=== PATIENT | female | born 1985 | race Caucasian/White ===

== ENCOUNTER → 2016-09-19 | Outpatient (CLI) | payer BC | LOC: MW.CHOBGYN 11:32 | PROVIDERS: ATTEND Nurse Practitioner Women's Health | DX: N94.9 Unspecified condition associated with female genital organs and menstrual cycle (principal); E79.0 Hyperuricemia without signs of inflammatory arthritis and tophaceous disease; R94.6 Abnormal results of thyroid function studies | CPT/HCPCS: 36415; 84439; 84443; 84550; 87480; 87510; 87660 ==

== ENCOUNTER 2018-12-19 06:21 | Day surgery (SDC) | payer BC ==
[2018-12-19] MEDS ORDERED: Midazolam 1 MG/ML 2 ML SDV ONE (07:02)
[2018-12-19] MEDS ORDERED: Lidocaine 2% 5 ML SDV ONE (07:02)
[2018-12-19] MEDS ORDERED: fentaNYL 100 MCG/2 ML SDV ONE (07:02)
[2018-12-19] MEDS ORDERED: Propofol 200 MG/20 ML SDV ONE ×2 (07:02→08:04)
--- NOTE | 2018-12-19 07:21 | PCM.PREANE ---
Preanesthetic Assessment - Anesthesia/Transfusion/Family Hx Anesthesia History: Prior Anesthesia Without Reaction Family History of Anesthesia Reaction: No Transfusion History: Prior Transfusion Without Reaction - Review of Systems General: No Symptoms Pulmonary: No Symptoms Cardiovascular: No Symptoms Gastrointestinal: No Symptoms Neurological: No Symptoms Other: Reports: None - Physical Assessment NPO Status Date: 12/18/18 O2 Sat by Pulse Oximetry: 98 Respiratory Rate: 14 Vital Signs: Last Vital Signs Temp 97.0 F 12/19/18 06:51 Pulse 80 12/19/18 06:51 Resp 14 12/19/18 06:51 BP 116/70 12/19/18 06:51 Pulse Ox 98 12/19/18 06:51 Height: 5 ft 3 in Weight: 79.832 kg ASA Class: 2 Mental Status: Alert & Oriented x3 Airway Class: Mallampati = 2 Dentition: Reports: Normal Dentition ROM/Head Extension: Full Lungs: Clear to Auscultation, Normal Respiratory Effort Cardiovascular: Regular Rate, Regular Rhythm - Lab Values: Laboratory Last Values Urine HCG, Qual NEGATIVE (NEGATIVE) 12/19/18 06:45 - Allergies Allergies/Adverse Reactions: Allergies Allergy/AdvReac Type Severity Reaction Status Date / Time No Known Allergies Allergy Verified 12/16/18 10:47 - Blood Blood Available: No - Anesthesia Plan Pre-Op Medication Ordered: None - Acknowledgements Anesthesia Type Planned: General Anesthesia Pt an Appropriate Candidate for the Planned Anesthesia: Yes Alternatives and Risks of Anesthesia Discussed w Pt/Guardian: Yes Pt/Guardian Understands and Agrees with Anesthesia Plan: Yes Additional Comments: anes prob list: cold induced asthma PLAN: ga/lma PreAnesthesia Questionnaire Respiratory History: Reports: Other (See Below) Other Respiratory History: never been diagnosed with Asthma but has an inhaler to use for SOB- like after shoveling snow Neurological History: Reports: Other (See Below) Other Neuro History: hx of motion sickness Endocrine/Metabolic History: Reports: Obesity/BMI 30+ Hematologic History: Reports: Other (See Below) Other Hematologic History: hx of bone marrow transplant - Past Surgical History Head Surgeries/Procedures: Reports: None HEENT Surgical History: Reports: Oral Surgery Other HEENT Surgeries/Procedures: wisdom teeth removed 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 Surgical History: Reports: ORIF Other 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 Surgeries/Procedures:: ORIF right femur- has hardware - SUBSTANCE USE Smoking Status *Q: Never Smoker Recreational Drug Use History: No - HOME MEDS Home Medications: Home Meds Levonorgestrel-Ethin Estradiol [Levonor-Eth Estrad 0.15-0.03] 1 tab PO DAILY [History] - CURRENT (IN HOUSE) MEDS Current Meds: Current Medications Discontinued Medications Fentanyl (Sublimaze) Confirm Administered Dose 100 mcg .ROUTE .STK-MED ONE Stop: 12/19/18 07:03 Lidocaine (Xylocaine-Mpf 2%) Confirm Administered Dose 5 ml .ROUTE .STK-MED ONE Stop: 12/19/18 07:03 Midazolam HCl (Versed 1 Mg/Ml) Confirm Administered Dose 2 mg .ROUTE .STK-MED ONE Stop: 12/19/18 07:03 Propofol (Diprivan 20 Ml) Confirm Administered Dose 400 mg .ROUTE .STK-MED ONE Stop: 12/19/18 07:03
[2018-12-19] MEDS ORDERED: Glycopyrrolate 0.2 MG/ML SDV ONE (08:02)
[2018-12-19] MEDS ORDERED: Lidocaine 1% 20 ML MDV ONE (08:10)
[2018-12-19] MEDS ORDERED: Lidocaine 1% with EPINEPHrine 1:100,000 20 ML MDV ONE (08:15)
--- NOTE | 2018-12-19 08:53 | PCM.OPNOTE ---
- General Post-Op/Procedure Note Date of Surgery/Procedure: 12/19/18 Operative Procedure(s): leep Post-Op Diagnosis: Same Anesthesia Technique: General LMA Primary Surgeon: Kameron Holguin EBL in mLs: 10 Complications: None Condition: Good
--- NOTE | 2018-12-19 08:54 | PCM.DCSUM1 ---
Discharge Summary - Hospital Course Diagnosis: Stroke: No - Discharge Data Discharge Date: 12/19/18 Discharge Disposition: Home, Self-Care 01 Condition: Good - Patient Summary/Data Operative Procedure(s) Performed: leep - Patient Instructions Diet: Usual Diet as Tolerated Activity: As Tolerated - Discharge Plan Home Medications: Home Meds Levonorgestrel-Ethin Estradiol [Levonor-Eth Estrad 0.15-0.03] 1 tab PO DAILY [History] - Discharge Summary/Plan Comment DC Time >30 min.: Yes - General Info Date of Service: 12/19/18 Functional Status: Reports: Pain Controlled - Review of Systems General: Reports: No Symptoms HEENT: Reports: No Symptoms Pulmonary: Reports: No Symptoms Cardiovascular: Reports: No Symptoms Gastrointestinal: Reports: No Symptoms Genitourinary: Reports: No Symptoms 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: Reports: No Symptoms Skin: Reports: No Symptoms Neurological: Reports: No Symptoms Psychiatric: Reports: No Symptoms - Patient Data Vitals - Most Recent: Last Vital Signs Temp 35.9 C 12/19/18 08:27 Pulse 79 12/19/18 08:47 Resp 15 12/19/18 08:47 BP 99/48 L 12/19/18 08:47 Pulse Ox 100 12/19/18 08:47 Weight - Most Recent: 79.832 kg Lab Results - Last 24 hrs: Laboratory Results - last 24 hr 12/19/18 Range/Units 06:45 Urine HCG, Qual NEGATIVE (NEGATIVE) Med Orders - Current: Current Medications Discontinued Medications Fentanyl (Sublimaze) Confirm Administered Dose 100 mcg .ROUTE .STK-MED ONE Stop: 12/19/18 07:03 Glycopyrrolate (Robinul) Confirm Administered Dose 0.2 mg .ROUTE .STK-MED ONE Stop: 12/19/18 08:03 Lidocaine HCl (Xylocaine-Mpf 1%) Confirm Administered Dose 10 mls @ as directed .ROUTE .STK-MED ONE Stop: 12/19/18 07:21 Lidocaine (Xylocaine-Mpf 2%) Confirm Administered Dose 5 ml .ROUTE .STK-MED ONE Stop: 12/19/18 07:03 Lidocaine HCl (Xylocaine 1%) Confirm Administered Dose 20 ml .ROUTE .STK-MED ONE Stop: 12/19/18 08:11 Lidocaine/Epinephrine (Xylocaine 1% With Epinephrine 1:100,000) Confirm Administered Dose 20 ml .ROUTE .STK-MED ONE Stop: 12/19/18 08:16 Midazolam HCl (Versed 1 Mg/Ml) Confirm Administered Dose 2 mg .ROUTE .STK-MED ONE Stop: 12/19/18 07:03 Propofol (Diprivan 20 Ml) Confirm Administered Dose 400 mg .ROUTE .STK-MED ONE Stop: 12/19/18 07:03 Propofol (Diprivan 20 Ml) Confirm Administered Dose 200 mg .ROUTE .STK-MED ONE Stop: 12/19/18 08:05 - Exam General: Reports: Alert, Oriented HEENT: Reports: Pupils Equal, Pupils Reactive, EOMI, Mucous Membr. Moist/[place] Neck: Reports: Supple Lungs: Reports: Clear to Auscultation, Normal Respiratory Effort Cardiovascular: Reports: Regular Rate, Regular Rhythm GI/Abdominal Exam: Normal Bowel Sounds, Soft, Non-Tender, No Organomegaly, No Distention, No Abnormal Bruit, No Mass, Pelvis Stable (Female) Exam: Normal External Exam, Normal Speculum Exam, Normal Bimanual Exam Rectal (Female) Exam: Normal Exam, Normal Rectal Tone Back Exam: Reports: Normal Inspection, Full Range of Motion Extremities: Normal Inspection, Normal Range of Motion, Non-Tender, No Pedal Edema, Normal Capillary Refill Skin: Reports: Warm, Dry, Intact Wound/Incisions: Reports: Healing Well Neurological: Reports: No New Focal Deficit Psy/Mental Status: Reports: Alert, Normal Affect, Normal Mood
--- NOTE | 2018-12-19 09:15 | PCM.POSTAN ---
POST ANESTHESIA ASSESSMENT - MENTAL STATUS Mental Status: Alert, Oriented - RESPIRATORY Respiratory Status: Respiratory Rate WNL, Airway Patent, O2 Saturation Stable - CARDIOVASCULAR CV Status: Pulse Rate WNL, Blood Pressure Stable - GASTROINTESTINAL GI Status: No Symptoms - POST OP HYDRATION Hydration Status: Adequate & Stable
--- NOTE | 2018-12-19 09:15 | PCM48HPAN ---
Post Anesthesia Note - EVALUATION WITHIN 48HRS OF ANESTHETIC Vital Signs in Normal Range: Yes Patient Participated in Evaluation: Yes Respiratory Function Stable: Yes Airway Patent: Yes Cardiovascular Function Stable: Yes Hydration Status Stable: Yes Pain Control Satisfactory: Yes Nausea and Vomiting Control Satisfactory: Yes Mental Status Recovered: Yes Resp Rate: 20
--- NOTE | 2018-12-19 12:25 | OR ---
SURGEON: Kameron Holguin MD DATE OF PROCEDURE: 12/19/2018 PREOPERATIVE DIAGNOSIS: Abnormal Pap smear. POSTOPERATIVE DIAGNOSIS: Abnormal Pap smear. OPERATION PERFORMED: LEEP conization of the cervix. PRIMARY SURGEON: Kameron Holguin MD. IT SPECIALIST: OR Talia. ANESTHESIA: LMA, Mr. Víctor Oneil. ESTIMATED BLOOD LOSS: Less than 10 mL. COMPLICATIONS: None. INDICATION FOR SURGERY: This patient had a persistent abnormal Pap smear with high grade virus. She is admitted for a LEEP excision, diagnostic and therapeutic. PROCEDURE IN DETAIL: The patient was brought to the OR, properly identified, and after adequate level of anesthesia, patient was placed in lithotomy position, prepped and draped in sterile fashion as usual. Straight catheter was used to empty the bladder, and weighted speculum was placed in vagina, and then, an Allis clamp was applied to the cervix in 3 and 9 o'clock. Cervix was injected with copious amount of xylocaine with 1% of epi. Once that is done, then a loop excision was done without any problem and sent for pathology. The base of the cervix was cauterized with a ball electrocautery, and there was a very minimal amount of bleeding, and once it was done, the procedure was ended. Instrument and sponge count was correct. The patient tolerated the procedure well, went to recovery room in stable general condition. BRITTANI / KIMBERLY /[id number]
== END 2018-12-19 10:18 | disposition home or self-care (01) ==
LOC: MW.SDS 06:21
PROVIDERS: ATTEND Obstetrics & Gynecology
DX: N87.0 Mild cervical dysplasia (principal); N72 Inflammatory disease of cervix uteri; R87.810 Cervical high risk human papillomavirus (HPV) DNA test positive; R87.620 Atypical squamous cells of undetermined significance on cytologic smear of vagina (ASC-US); J45.990 Exercise induced bronchospasm; E66.9 Obesity, unspecified; Z68.32 Body mass index [BMI] 32.0-32.9, adult; Z79.3 Long term (current) use of hormonal contraceptives; Z79.51 Long term (current) use of inhaled steroids
CPT/HCPCS: 57522; 81025; J2001; J2250; J2704; J3010; J3490; 00944; 88307

== ENCOUNTER 2020-11-16 21:34 | Inpatient (IN) | payer BC, OTHER ==
[2020-11-16] MEDS ORDERED: Lidocaine 1% 50 ML MDV INJECT PRN (22:19)
[2020-11-16] MEDS ORDERED: Tranexamic Acid 1,000 MG in Sodium Chloride 0.9% 100 ML IV PRN (22:19)
[2020-11-16] MEDS ORDERED: Butorphanol 1 MG/ML SDV IVPUSH PRN (22:19)
[2020-11-16] MEDS ORDERED: Sodium Chloride 0.9% 10 ML Syringe FLUSH PRN (22:19)
[2020-11-16] MEDS ORDERED: Carboprost Tromethamine 250 MCG/1 ML Amp IM PRN (22:19)
[2020-11-16] MEDS ORDERED: Water For Irrigation,Sterile 1,000 ML Container IRR PRN (22:19)
[2020-11-16] MEDS ORDERED: Nalbuphine 10 MG/1 ML Vial IVPUSH PRN (22:19)
[2020-11-16] MEDS ORDERED: Misoprostol 200 MCG Tab PO PRN (22:19)
[2020-11-16] MEDS ORDERED: Terbutaline 1 MG/ML SDV SUBCUT PRN (22:19)
[2020-11-16] MEDS ORDERED: Sodium Chloride 0.9% 2.5 ML Syringe FLUSH PRN (22:19)
[2020-11-16] MEDS ORDERED: Sodium Chloride 0.9% 10 ML SDV IV PRN (22:19)
[2020-11-16] MEDS ORDERED: Methylergonovine 0.2 MG/1 ML Amp IM PRN (22:19)
[2020-11-16] MEDS ORDERED: Ondansetron 4 MG/2 ML SDV IVPUSH PRN (22:19)
[2020-11-16] MEDS ORDERED: Oxytocin/0.9 % Sodium Chloride 30 UNIT/500 ML BAG IV SCH (22:30)
[2020-11-16] MEDS: Lactated Ringers 1,000 ML IV SCH (23:00)
[2020-11-16] MEDS: Oxytocin/0.9 % Sodium Chloride 30 UNIT/500 ML BAG IV SCH ×2 (23:15→23:40)
[2020-11-17] MEDS: Oxytocin/0.9 % Sodium Chloride 30 UNIT/500 ML BAG IV SCH ×8 (00:05→06:17)
[2020-11-17] MEDS: Lactated Ringers 1,000 ML IV SCH ×3 (01:30→07:37)
[2020-11-17] MEDS ORDERED: fentaNYL 100 MCG/2 ML SDV ONE (03:14)
[2020-11-17] MEDS ORDERED: Ropivacaine HCl/PF 200 ML ONE (03:14)
--- NOTE | 2020-11-17 03:34 | PCM.PREANE ---
Preanesthetic Assessment - Anesthesia/Transfusion/Family Hx Anesthesia History: Prior Anesthesia Without Reaction Family History of Anesthesia Reaction: No Transfusion History: Prior Transfusion Without Reaction - Physical Assessment NPO Status Date: 11/17/20 NPO Status Time: 01:00 Height: 1.6 m Weight: 111.13 kg ASA Class: 2E - Lab Values: Laboratory Last Values WBC 9.11 K/uL (4.0-11.0) 11/16/20 22:39 RBC 4.04 M/uL (4.30-5.90) L 11/16/20 22:39 Hgb 11.7 g/dL (12.0-16.0) L 11/16/20 22:39 Hct 35.7 % (36.0-46.0) L 11/16/20 22:39 MCV 88.4 fL (80.0-98.0) 11/16/20 22:39 MCH 29.0 pg (27.0-32.0) 11/16/20 22:39 MCHC 32.8 g/dL (31.0-37.0) 11/16/20 22:39 RDW Std Deviation 47.5 fl (28.0-62.0) 11/16/20 22:39 RDW Coeff of Mehul 15 % (11.0-15.0) 11/16/20 22:39 Plt Count 187 K/uL (150-400) 11/16/20 22:39 MPV 13.00 fL (7.40-12.00) H 11/16/20 22:39 Nucleated RBC % 0.0 /100WBC 11/16/20 22:39 Nucleated RBCs # 0 K/uL 11/16/20 22:39 Blood Type A POSITIVE 11/16/20 22:14 Antibody Screen NEGATIVE 11/16/20 22:14 - Allergies Allergies/Adverse Reactions: Allergies Allergy/AdvReac Type Severity Reaction Status Date / Time No Known Allergies Allergy Verified 11/15/20 15:59 - Acknowledgements Anesthesia Type Planned: Epidural Pt an Appropriate Candidate for the Planned Anesthesia: Yes Alternatives and Risks of Anesthesia Discussed w Pt/Guardian: Yes Pt/Guardian Understands and Agrees with Anesthesia Plan: Yes PreAnesthesia Questionnaire - Past Health History Medical/Surgical History: Denies Medical/Surgical History HEENT History: Reports: None Respiratory History: Reports: Other (See Below) Other Respiratory History: never been diagnosed with Asthma but has an inhaler to use for SOB- like after shoveling snow 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: 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 History: Reports: None Neurological History: Reports: Other (See Below) Other Neuro History: hx of motion sickness Endocrine/Metabolic History: Reports: Obesity/BMI 30+ Hematologic History: Reports: Other (See Below) Other Hematologic History: hx of bone marrow transplant - Past Surgical History Head Surgeries/Procedures: Reports: None HEENT Surgical History: Reports: Oral Surgery Other HEENT Surgeries/Procedures: wisdom teeth removed 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 Surgical History: Reports: ORIF Other 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 Surgeries/Procedures:: ORIF right femur- has hardware - HOME MEDS Home Medications: Home Meds Levonorgestrel/Ethin.estradiol [Levonor-Eth Estrad 0.15-0.03] 1 tab PO DAILY 12/16/18 [History] - CURRENT (IN HOUSE) MEDS Current Meds: Current Medications Butorphanol Tartrate (Butorphanol 1 Mg/Ml Sdv) 1 mg IVPUSH Q1H PRN PRN Reason: Pain (severe 7-10) Last Admin: 11/17/20 02:04 Dose: 1 mg Documented by: Carboprost Tromethamine (Carboprost Tromethamine 250 Mcg/1 Ml Amp) 250 mcg IM ASDIRECTED PRN PRN Reason: Post Hemorrhage Oxytocin/Sodium Chloride (Oxytocin 30 Unit/500 Ml-Ns) 30 unit in 500 mls @ 999 mls/hr IV TITRATE JUDD Tranexamic Acid 1,000 mg/ (Sodium Chloride) 110 mls @ 660 mls/hr IV ONETIME PRN PRN Reason: Bleeding Oxytocin/Sodium Chloride (Oxytocin 30 Unit/500 Ml-Ns) 30 unit in 500 mls @ 2 mls/hr IV TITRATE JUDD; Protocol Last Admin: 11/17/20 02:00 Dose: 16 munits/min, 16 mls/hr Documented by: Lactated Ringer's (Ringers, Lactated) 1,000 mls @ 150 mls/hr IV ASDIRECTED JUDD Last Admin: 11/16/20 23:00 Dose: 150 mls/hr Documented by: Lidocaine HCl (Lidocaine 1% 50 Ml Mdv) 50 ml INJECT ONETIME PRN PRN Reason: Laceration repair Methylergonovine Maleate (Methylergonovine 0.2 Mg/1 Ml Amp) 0.2 mg IM ASDIRECTED PRN PRN Reason: Post Hemorrhage Misoprostol (Misoprostol 200 Mcg Tab) 200 mcg PO ONETIME PRN PRN Reason: Post Hemorrhage Nalbuphine HCl (Nalbuphine 10 Mg/1 Ml Vial) 10 mg IVPUSH Q1H PRN PRN Reason: Pain (severe 7-10) Ondansetron HCl (Ondansetron 4 Mg/2 Ml Sdv) 4 mg IVPUSH Q4H PRN PRN Reason: Nausea/Vomiting Sodium Chloride (Sodium Chloride 0.9% 10 Ml Syringe) 10 ml FLUSH ASDIRECTED PRN PRN Reason: Keep Vein Open Sodium Chloride (Sodium Chloride 0.9% 2.5 Ml Syringe) 2.5 ml FLUSH ASDIRECTED PRN PRN Reason: Keep Vein Open Sodium Chloride (Sodium Chloride 0.9% 10 Ml Sdv) 10 ml IV ASDIRECTED PRN PRN Reason: IV Use Sterile Water (Water For Irrigation,Sterile 1,000 Ml Container) 1,000 ml IRR ASDIRECTED PRN PRN Reason: delivery Terbutaline Sulfate (Terbutaline 1 Mg/Ml Sdv) 0.25 mg SUBCUT ASDIRECTED PRN PRN Reason: Tacysystole Discontinued Medications Fentanyl (Fentanyl 100 Mcg/2 Ml Sdv) Confirm Administered Dose 200 mcg .ROUTE .STK-MED ONE Stop: 11/17/20 03:15 Ropivacaine (Naropin 0.2%) Confirm Administered Dose 200 mls @ as directed .ROUTE .STK-MED ONE Stop: 11/17/20 03:15
--- NOTE | 2020-11-17 03:38 | PCM.PRNOTE ---
- Free Text/Narrative Note: Anes Note Patietn requests epidural fro L&D. Sitting position. Sterile technique, level L3-L4 midline approach. Chloraprep scrub to lumbar area. Sterile fenestrated drape applied. Epidural space easily achieved sigle attempt using SAMSON technique. SAMSON at 5 cm. Cath threaded 6 cm wiht ease. Cath secured at skin using sterile clear adhesive dressing. Test 0316 3 cc 1.5% lido with epi negative. 0320 Load 10 cc 0.2% ropivicaine with 1 mcg cc fentanyl. 0324 Pumps started with 190 cc same solution. Rate is 8 cc hr with 6 cc q 20 min prn bolus. Ketan well. 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
[2020-11-17] MEDS ORDERED: Phenylephrine/Normal Saline 100 MCG/ML 10 ML Syringe IVPUSH PRN (03:44)
[2020-11-17] MEDS ORDERED: ePHEDrine 50 MG/ML SDV IVPUSH PRN (03:44)
[2020-11-17] MEDS ORDERED: Docusate Sodium 100 MG Cap PO PRN (11:53)
[2020-11-17] MEDS ORDERED: Acetaminophen 500 MG Tab PO PRN ×2 (11:53)
[2020-11-17] MEDS ORDERED: Lanolin 100% Cream 7 GM Tube TOP PRN (11:53)
[2020-11-17] MEDS ORDERED: Bisacodyl 10 MG Supp RECTAL PRN (11:53)
[2020-11-17] MEDS ORDERED: Benzocaine/Menthol 20%-0.5% Spray 78 GM Cannister TOP PRN (11:53)
[2020-11-17] MEDS ORDERED: oxyCODONE 5 MG Tab PO PRN (11:53)
[2020-11-17] MEDS ORDERED: Witch Hazel Medicated Pads 40/Jar TOP PRN (11:53)
[2020-11-17] MEDS ORDERED: Ibuprofen 400 MG Tab PO PRN (11:53)
--- NOTE | 2020-11-17 12:03 | PCM.DEL ---
L & D Note - General Info Date of Service: 11/17/20 Mother's Due Date: 11/23/20 - Delivery Note Labor: Induced by Oxytocin Cervical Ripening Method: Oxytocin Delivery Outcome: Livebirth Infant Delivery Method: Spontaneous Vaginal Delivery-Single Presentation: Left Occiput Anterior (MIKE) Nuchal Cord: Present (x1, delivered through) Anesthesia Type: Epidural Amniotic Fluid Description: Clear Episiotomy Type: None Laceration: None Placenta: Intact, Spontaneous Cord: 3 Vessels Estimated Blood Loss: 150 Resuscitation Needed: No : Bulb Syringe, Stimulated Score 1 min: 8 Score 5 min: 9 Delivery Comments (Free Text/Narrative):: Dictation #[id number] - General Info Date of Service: 11/17/20 - Patient Data Weight - Most Recent: 245 lb Lab Results Last 24 Hours: Laboratory Results - last 24 hr 11/16/20 11/16/20 Range/Units 22:14 22:39 WBC 9.11 (4.0-11.0) K/uL RBC 4.04 L (4.30-5.90) M/uL Hgb 11.7 L (12.0-16.0) g/dL Hct 35.7 L (36.0-46.0) % MCV 88.4 (80.0-98.0) fL MCH 29.0 (27.0-32.0) pg MCHC 32.8 (31.0-37.0) g/dL RDW Std Deviation 47.5 (28.0-62.0) fl RDW Coeff of Mehul 15 (11.0-15.0) % Plt Count 187 (150-400) K/uL MPV 13.00 H (7.40-12.00) fL Nucleated RBC % 0.0 /100WBC Nucleated RBCs # 0 K/uL Blood Type A POSITIVE Antibody Screen NEGATIVE Med Orders - Current: Current Medications Butorphanol Tartrate (Butorphanol 1 Mg/Ml Sdv) 1 mg IVPUSH Q1H PRN PRN Reason: Pain (severe 7-10) Last Admin: 11/17/20 02:04 Dose: 1 mg Documented by: Carboprost Tromethamine (Carboprost Tromethamine 250 Mcg/1 Ml Amp) 250 mcg IM ASDIRECTED PRN PRN Reason: Post Hemorrhage Ephedrine Sulfate (Ephedrine 50 Mg/Ml Sdv) 10 mg IVPUSH Q5M PRN PRN Reason: Hypotension Oxytocin/Sodium Chloride (Oxytocin 30 Unit/500 Ml-Ns) 30 unit in 500 mls @ 999 mls/hr IV TITRATE JUDD Tranexamic Acid 1,000 mg/ (Sodium Chloride) 110 mls @ 660 mls/hr IV ONETIME PRN PRN Reason: Bleeding Oxytocin/Sodium Chloride (Oxytocin 30 Unit/500 Ml-Ns) 30 unit in 500 mls @ 2 mls/hr IV TITRATE [facility]; Protocol Last Admin: 11/17/20 06:17 Dose: 10 munits/min, 10 mls/hr Documented by: Lactated Ringer's (Ringers, Lactated) 1,000 mls @ 150 mls/hr IV ASDIRECTED JUDD Last Admin: 11/17/20 07:37 Dose: 150 mls/hr Documented by: Lidocaine HCl (Lidocaine 1% 50 Ml Mdv) 50 ml INJECT ONETIME PRN PRN Reason: Laceration repair Methylergonovine Maleate (Methylergonovine 0.2 Mg/1 Ml Amp) 0.2 mg IM ASDIRECTED PRN PRN Reason: Post Hemorrhage Misoprostol (Misoprostol 200 Mcg Tab) 200 mcg PO ONETIME PRN PRN Reason: Post Hemorrhage Nalbuphine HCl (Nalbuphine 10 Mg/1 Ml Vial) 10 mg IVPUSH Q1H PRN PRN Reason: Pain (severe 7-10) Ondansetron HCl (Ondansetron 4 Mg/2 Ml Sdv) 4 mg IVPUSH Q4H PRN PRN Reason: Nausea/Vomiting Phenylephrine HCl (Phenylephrine/Normal Saline 100 Mcg/Ml 10 Ml Syringe) 0.1 mg IVPUSH Q5M PRN PRN Reason: Hypotension Sodium Chloride (Sodium Chloride 0.9% 10 Ml Syringe) 10 ml FLUSH ASDIRECTED PRN PRN Reason: Keep Vein Open Sodium Chloride (Sodium Chloride 0.9% 2.5 Ml Syringe) 2.5 ml FLUSH ASDIRECTED PRN PRN Reason: Keep Vein Open Sodium Chloride (Sodium Chloride 0.9% 10 Ml Sdv) 10 ml IV ASDIRECTED PRN PRN Reason: IV Use Sterile Water (Water For Irrigation,Sterile 1,000 Ml Container) 1,000 ml IRR ASDIRECTED PRN PRN Reason: delivery Terbutaline Sulfate (Terbutaline 1 Mg/Ml Sdv) 0.25 mg SUBCUT ASDIRECTED PRN PRN Reason: Tacysystole Discontinued Medications Fentanyl (Fentanyl 100 Mcg/2 Ml Sdv) Confirm Administered Dose 200 mcg .ROUTE .STK-MED ONE Stop: 11/17/20 03:15 Ropivacaine (Naropin 0.2%) Confirm Administered Dose 200 mls @ as directed .BLANCHE SEARSE .STK-MED ONE Stop: 11/17/20 03:15 - Problem List Review Problem List Initiated/Reviewed/Updated: Yes - My Orders Last 24 Hours: My Active Orders 11/17/20 11:53 Patient Status [ADT] Routine May Shower [RC] ASDIRECTED Up ad Destiny [RC] ASDIRECTED Vital Signs [RC] PER UNIT ROUTINE Acetaminophen [Tylenol Extra Strength] 1,000 mg PO Q4H PRN Acetaminophen [Tylenol Extra Strength] 500 mg PO Q4H PRN Benzocaine/Menthol [Dermoplast Pain Relief 20%-0.5% [place]] 78 gm TOP ASDIRECTED PRN Docusate Sodium [Colace] 100 mg PO Q12H PRN Ibuprofen [Motrin] 400 mg PO Q4H PRN Ibuprofen [Motrin] 800 mg PO Q6H PRN Lanolin [Lansinoh HPA] See Dose Instructions TOP ASDIRECTED PRN bisacodyL [Dulcolax] 10 mg RECTAL ONETIME PRN oxyCODONE 5 mg PO Q2H PRN witch Maria [Tucks] 1 pad TOP ASDIRECTED PRN Assess Lochia [WOMSER] Per Unit Routine Assess Uterine Involution [WOMSER] Per Unit Routine Peripheral IV Discontinue [OM.PC] Routine 11/18/20 05:11 HEMOGLOBIN/HEMATOCRIT,HH [HEME] Timed - Assessment Assessment:: 34 year old G3 now P2012 s/p spontaneous vaginal delivery - Plan Plan:: Routine cares * Rh positive, rubella immune, GBS negative * PO pain medication ordered PRN * Regular diet as tolerated * Encourage ambulation and fluid intake when able Dispo: stable. Admit to floor with anticipation of routine course.
--- NOTE | 2020-11-17 14:00 | OR ---
SURGEON: NIDIA PEACE MD DATE OF PROCEDURE: 11/17/2020 PREOPERATIVE DIAGNOSES: 1. Term intrauterine at 39 weeks and 1 day gestation. 2. Maternal obesity. 3. History of preeclampsia in previous . POSTOPERATIVE DIAGNOSES: 1. Term intrauterine at 39 weeks and 1 day gestation. 2. Maternal obesity. 3. History of preeclampsia in previous . PROCEDURE PERFORMED: Spontaneous vaginal delivery. PRIMARY SURGEON: Nidia Peace MD INDICATIONS: The patient is a 34-year-old 3, para 1 at 39 weeks gestation who presented to Labor and Delivery on the evening of 11/16/2020 for induction of labor. She received IV Pitocin for induction. She received an epidural through the early hours of 11/17/2020 and labor progressed spontaneously. At approximately 11:30, I was notified. The patient was completely dilated and feeling pressured and wanted to start pushing. DESCRIPTION OF PROCEDURE: Upon arrival to patient's room, the patient pushed with contractions for approximately 10 minutes with good descent. head delivered in occiput anterior position, restituted LOT. Tight nuchal cord was noted and delivered through. The anterior shoulder delivered easily. Posterior shoulder and remaining body were then delivered without difficulty. The baby was then placed on maternal abdomen and evaluated by nursing staff. After the cord stopped pulsating, it was clamped and cut, and arterial venous and cord blood gases were then obtained. The placenta was then expressed intact. Three-vessel cord was noted. The vagina and perineum were then examined and no lacerations were noted. Fundal massage was performed, and the patient's bleeding was light. Hemostasis was confirmed. She tolerated the procedure well and was given care instructions. SACHIN / KIMBERLY /[id number]
[2020-11-17] MEDS: Ibuprofen 800 MG Tab PO PRN (20:03)
[2020-11-18] MEDS: Ibuprofen 800 MG Tab PO PRN (02:21)
--- NOTE | 2020-11-18 08:10 | PCM.PNPP ---
- General Info Date of Service: 11/18/20 Subjective Update: Resting comfortably in bed, nursing baby during rounds. Pain well controlled. Ambulating and voiding without difficulty. Lochia decreasing. Tolerating regular diet. going well. - General Info Date of Service: 11/18/20 - Patient Data Vital Signs - Most Recent: Last Vital Signs Temp 96.9 F 11/18/20 05:00 Pulse 59 L 11/18/20 05:00 Resp 16 11/18/20 05:00 BP 124/75 11/18/20 05:00 Pulse Ox 98 11/18/20 05:00 Weight - Most Recent: 245 lb Lab Results - Last 24 Hours: Laboratory Results - last 24 hr 11/18/20 Range/Units 05:25 Hgb 10.3 L (12.0-16.0) g/dL Hct 32.0 L (36.0-46.0) % Med Orders - Current: Current Medications Acetaminophen (Acetaminophen 500 Mg Tab) 500 mg PO Q4H PRN PRN Reason: Pain (mild 1-3) Acetaminophen (Acetaminophen 500 Mg Tab) 1,000 mg PO Q4H PRN PRN Reason: Pain (mild 1-3) Last Admin: 11/17/20 15:18 Dose: 1,000 mg Documented by: Benzocaine/Menthol (Benzocaine/Menthol 20%-0.5% [place] 78 Gm Cannister) 78 gm TOP ASDIRECTED PRN PRN Reason: Perineal Comfort Measure Last Admin: 11/17/20 15:17 Dose: 1 canister Documented by: Bisacodyl (Bisacodyl 10 Mg Supp) 10 mg RECTAL ONETIME PRN PRN Reason: Constipation Butorphanol Tartrate (Butorphanol 1 Mg/Ml Sdv) 1 mg IVPUSH Q1H PRN PRN Reason: Pain (severe 7-10) Last Admin: 11/17/20 02:04 Dose: 1 mg Documented by: Carboprost Tromethamine (Carboprost Tromethamine 250 Mcg/1 Ml Amp) 250 mcg IM ASDIRECTED PRN PRN Reason: Post Hemorrhage Docusate Sodium (Docusate Sodium 100 Mg Cap) 100 mg PO Q12H PRN PRN Reason: Constipation Last Admin: 11/17/20 20:03 Dose: 100 mg Documented by: Emollient Ointment (Lanolin 100% Cream 7 Gm Tube) 0 gm TOP ASDIRECTED PRN PRN Reason: Sore Nipples Last Admin: 11/17/20 15:17 Dose: 1 tube Documented by: Ephedrine Sulfate (Ephedrine 50 Mg/Ml Sdv) 10 mg IVPUSH Q5M PRN PRN Reason: Hypotension Oxytocin/Sodium Chloride (Oxytocin 30 Unit/500 Ml-Ns) 30 unit in 500 mls @ 999 mls/hr IV TITRATE JUDD Tranexamic Acid 1,000 mg/ (Sodium Chloride) 110 mls @ 660 mls/hr IV ONETIME PRN PRN Reason: Bleeding Oxytocin/Sodium Chloride (Oxytocin 30 Unit/500 Ml-Ns) 30 unit in 500 mls @ 2 mls/hr IV TITRATE JUDD; Protocol Last Admin: 11/17/20 06:17 Dose: 10 munits/min, 10 mls/hr Documented by: Lactated Ringer's (Ringers, Lactated) 1,000 mls @ 150 mls/hr IV ASDIRECTED JUDD Last Admin: 11/17/20 07:37 Dose: 150 mls/hr Documented by: Ibuprofen (Ibuprofen 400 Mg Tab) 400 mg PO Q4H PRN PRN Reason: Pain (mild 1-3) Ibuprofen (Ibuprofen 800 Mg Tab) 800 mg PO Q6H PRN PRN Reason: Pain (mild 1-3) Last Admin: 11/18/20 02:21 Dose: 800 mg Documented by: Lidocaine HCl (Lidocaine 1% 50 Ml Mdv) 50 ml INJECT ONETIME PRN PRN Reason: Laceration repair Methylergonovine Maleate (Methylergonovine 0.2 Mg/1 Ml Amp) 0.2 mg IM ASDIRECTED PRN PRN Reason: Post Hemorrhage Misoprostol (Misoprostol 200 Mcg Tab) 200 mcg PO ONETIME PRN PRN Reason: Post Hemorrhage Nalbuphine HCl (Nalbuphine 10 Mg/1 Ml Vial) 10 mg IVPUSH Q1H PRN PRN Reason: Pain (severe 7-10) Ondansetron HCl (Ondansetron 4 Mg/2 Ml Sdv) 4 mg IVPUSH Q4H PRN PRN Reason: Nausea/Vomiting Oxycodone HCl (Oxycodone 5 Mg Tab) 5 mg PO Q2H PRN PRN Reason: Pain (severe 7-10) Phenylephrine HCl (Phenylephrine/Normal Saline 100 Mcg/Ml 10 Ml Syringe) 0.1 mg IVPUSH Q5M PRN PRN Reason: Hypotension Sodium Chloride (Sodium Chloride 0.9% 10 Ml Syringe) 10 ml FLUSH ASDIRECTED PRN PRN Reason: Keep Vein Open Sodium Chloride (Sodium Chloride 0.9% 2.5 Ml Syringe) 2.5 ml FLUSH ASDIRECTED PRN PRN Reason: Keep Vein Open Sodium Chloride (Sodium Chloride 0.9% 10 Ml Sdv) 10 ml IV ASDIRECTED PRN PRN Reason: IV Use Sterile Water (Water For Irrigation,Sterile 1,000 Ml Container) 1,000 ml IRR ASDIRECTED PRN PRN Reason: delivery Terbutaline Sulfate (Terbutaline 1 Mg/Ml Sdv) 0.25 mg SUBCUT ASDIRECTED PRN PRN Reason: Tacysystole Witch Maria (Witch Maria Medicated Pads 40/Jar) 1 pad TOP ASDIRECTED PRN PRN Reason: comfort care Last Admin: 11/17/20 15:17 Dose: 1 container Documented by: Discontinued Medications Fentanyl (Fentanyl 100 Mcg/2 Ml Sdv) Confirm Administered Dose 200 mcg .ROUTE .STK-MED ONE Stop: 11/17/20 03:15 Ropivacaine (Naropin 0.2%) Confirm Administered Dose 200 mls @ as directed .ROUTE .STK-MED ONE Stop: 11/17/20 03:15 - Infant Interaction Disposition, : [place] in Room with Family Infant Interaction: Holding Infant Infant Feeding: Breastfed ; Nursed Well Support Person: - Recovery Exam Fundal Tone: Firm Fundal Level: 1 Fingerbreadths Below Umbilicus Fundal Placement: Midline Lochia Amount: Scant Lochia Color: Rubra/Red Perineum Description: Edematous Episiotomy/Laceration: None Bladder Status: Voiding Urinary Elimination: Voided - Exam General: Alert Lungs: Clear to Auscultation Cardiovascular: Regular Rate GI/Abdominal Exam: Soft, Non-Tender Extremities: Normal Inspection, Normal Range of Motion, Non-Tender, Pedal Edema (1+) Skin: Warm, Dry, Intact Neurological: No New Focal Deficit Psy/Mental Status: Normal Mood - Problem List Review Problem List Initiated/Reviewed/Updated: Yes - My Orders Last 24 Hours: My Active Orders 11/17/20 11:53 Patient Status [ADT] Routine Up ad Destiny [RC] ASDIRECTED Vital Signs [RC] PER UNIT ROUTINE Acetaminophen [Tylenol Extra Strength] 1,000 mg PO Q4H PRN Acetaminophen [Tylenol Extra Strength] 500 mg PO Q4H PRN Benzocaine/Menthol [Dermoplast Pain Relief 20%-0.5% [place]] 78 gm TOP ASDIRECTED PRN Docusate Sodium [Colace] 100 mg PO Q12H PRN Ibuprofen [Motrin] 400 mg PO Q4H PRN Ibuprofen [Motrin] 800 mg PO Q6H PRN Lanolin [Lansinoh HPA] See Dose Instructions TOP ASDIRECTED PRN bisacodyL [Dulcolax] 10 mg RECTAL ONETIME PRN oxyCODONE 5 mg PO Q2H PRN witch Maria [Tucks] 1 pad TOP ASDIRECTED PRN Assess Lochia [WOMSER] Per Unit Routine Assess Uterine Involution [WOMSER] Per Unit Routine Peripheral IV Discontinue [OM.PC] Routine - Assessment Assessment:: 34 year old G3 now P2012 PPD1 s/p spontaneous vaginal delivery - Plan Plan:: Routine cares * Rh positive, rubella immune, GBS negative * PO pain medication ordered PRN * Regular diet as tolerated * Encourage ambulation and fluid intake when able * , nursing assistance PRN Dispo: stable. Anticipate discharge today pending maternal/infant status. Reviewed discharge instructions. Patient to return to [facility] in 4 weeks for visit
--- NOTE | 2020-11-18 08:54 | PCM.POSTAN ---
POST ANESTHESIA ASSESSMENT - MENTAL STATUS Mental Status: Alert, Oriented - VITAL SIGNS Vital Signs: Last Vital Signs Temp 96.9 F 11/18/20 07:00 Pulse 65 11/18/20 07:00 Resp 18 11/18/20 07:00 BP 131/77 11/18/20 07:00 Pulse Ox 98 11/18/20 07:00 - RESPIRATORY Respiratory Status: Respiratory Rate WNL, Airway Patent, O2 Saturation Stable - CARDIOVASCULAR CV Status: Pulse Rate WNL, Blood Pressure Stable - GASTROINTESTINAL GI Status: No Symptoms - POST OP HYDRATION Hydration Status: Adequate & Stable
== END 2020-11-18 14:13 | disposition home or self-care (01) | DRG 560 ==
LOC: MW.OBCHECK 21:34 → MW.OB 21:34 → OBSVTOIN 11-17 11:39 → INTOOBSV 11-17 11:39 → MW.OB 11-17 11:39 → MW.OBCHECK 11-17 11:53 → OBSVTOIN 11-17 11:53 → MW.OB 11-17 16:38
PROVIDERS: ADMIT Obstetrics & Gynecology; ATTEND Obstetrics & Gynecology
PROC: 10E0XZZ Delivery of Products of Conception, External Approach (ICD-10-PCS; principal; 2020-11-17)
PROC: 3E0R3BZ Introduction of Anesthetic Agent into Spinal Canal, Percutaneous Approach (ICD-10-PCS; 2020-11-17)
PROC: 00HU33Z Insertion of Infusion Device into Spinal Canal, Percutaneous Approach (ICD-10-PCS; 2020-11-17)
DX: O99.214 Obesity complicating childbirth (principal); E66.9 Obesity, unspecified; Z3A.39 39 weeks gestation of pregnancy; Z37.0 Single live birth; O69.1XX0 Labor and delivery complicated by cord around neck, with compression, not applicable or unspecified
CPT/HCPCS: 01967; 36415; 59025; 59409; 85014; 85018; 85027; 86592; 86850; 86900; 86901; A9270-GY; J0595; J2590; J7120

== ENCOUNTER 2022-10-22 11:17 | Emergency (ER) | payer BC, OTHER ==
[2022-10-22] MEDS ORDERED: Azithromycin 250 MG Tab PO ONE (12:30)
[2022-10-22] MEDS ORDERED: Ibuprofen 600 MG Tab PO ONE (12:30)
== END 2022-10-22 12:44 | disposition home or self-care (01) ==
LOC: MW.ED 11:17
DX: J02.0 Streptococcal pharyngitis (principal); E66.9 Obesity, unspecified; Z68.37 Body mass index [BMI] 37.0-37.9, adult
CPT/HCPCS: 87651; 99283; A9270; 99282

== ENCOUNTER 2024-02-08 05:36 | Inpatient (IN) | payer BC ==
[2024-02-08] MEDS ORDERED: Lidocaine 1% 50 ML MDV INJECT PRN (05:56)
[2024-02-08] MEDS ORDERED: Tranexamic Acid IN NACL,ISO-OS 1,000 MG in Premix Bag 1 BAG IV PRN ×2 (05:56→11:55)
[2024-02-08] MEDS ORDERED: Methylergonovine 0.2 MG/1 ML Amp IM PRN (05:56)
[2024-02-08] MEDS ORDERED: Butorphanol 2 MG/ML SDV IVPUSH PRN (05:56)
[2024-02-08] MEDS ORDERED: Water For Irrigation,Sterile 1,000 ML Container IRR PRN (05:56)
[2024-02-08] MEDS ORDERED: Sodium Chloride 0.9% 10 ML Syringe FLUSH PRN ×2 (05:56→11:55)
[2024-02-08] MEDS ORDERED: Sodium Chloride 0.9% 20 ML SDV IV PRN (05:56)
[2024-02-08] MEDS ORDERED: Carboprost Tromethamine 250 MCG/1 mL Vial IM PRN ×2 (05:56→11:55)
[2024-02-08] MEDS ORDERED: Ondansetron 4 MG/2 ML SDV IVPUSH PRN ×2 (05:56→11:55)
[2024-02-08] MEDS ORDERED: Terbutaline 1 MG/ML SDV SUBCUT PRN (05:56)
[2024-02-08] MEDS ORDERED: Sodium Chloride 0.9% 2.5 ML Syringe FLUSH PRN ×2 (05:56→11:55)
[2024-02-08] MEDS ORDERED: Misoprostol 200 MCG Tab PO PRN (05:56)
[2024-02-08] MEDS ORDERED: Oxytocin/0.9 % Sodium Chloride 30 UNIT/500 ML BAG IV SCH ×2 (06:00→12:00)
[2024-02-08] MEDS: Lactated Ringers 1,000 ML IV SCH (06:16)
[2024-02-08 06:26] LABS: HEMATOCRIT 41.6 % (37.0-47.0); HEMOGLOBIN 14.2 g/dL (12.0-16.0); MEAN CORPUSCULAR HEMOGLOBIN 29.5 pg (28.0-32.0); MEAN CORPUSCULAR HGB CONC 34.1 g/dL (32.0-36.0); MEAN CORPUSCULAR VOLUME 86.3 fL (83.0-99.0); MEAN PLATELET VOLUME 13.4 fL (9.4-12.3); PLATELET COUNT,PLT 187 K/uL (150-400); RED BLOOD CELL COUNT 4.82 M/uL (4.10-5.30); WHITE BLOOD CELL COUNT,WBC 10.14 K/uL (3.9-11.3)
[2024-02-08] MEDS ORDERED: Bupivacaine 0.5% 10 ML SDV ONE (06:32)
[2024-02-08] MEDS ORDERED: Phenylephrine HCl In 0.9% NaCl 1 MG/10 ML Syringe IVPUSH PRN (06:59)
[2024-02-08] MEDS ORDERED: ePHEDrine 50 MG/ML SDV IVPUSH PRN ×2 (06:59)
[2024-02-08] MEDS ORDERED: dexmedeTOMIDine HCl 200 MCG/2 ML SDV EPIDUR SCH (07:00)
[2024-02-08] MEDS ORDERED: ePHEDrine 50 MG/ML SDV IM PRN (07:00)
[2024-02-08] MEDS ORDERED: Bupivacaine 0.5% 10 ML SDV INJECT ONE (07:00)
[2024-02-08] MEDS ORDERED: Ropivacaine HCl/PF 400 MG in Premix Bag 1 BAG EPIDUR SCH (07:00)
[2024-02-08] MEDS: Ropivacaine HCl/PF 200 ML ONE (07:00)
[2024-02-08] MEDS ORDERED: Citric Acid/Sodium Citrate Solution 30 ML Cup ONE (11:23)
[2024-02-08] MEDS: Citric Acid/Sodium Citrate Solution 30 ML Cup PO ONE (11:30)
[2024-02-08] MEDS: Oxytocin/0.9 % Sodium Chloride 30 UNIT/500 ML BAG IV SCH (11:45)
[2024-02-08] MEDS ORDERED: Lanolin 100% Cream 7 GM Tube TOP PRN (11:55)
[2024-02-08] MEDS ORDERED: Misoprostol 200 MCG Tab RECTAL PRN (11:55)
[2024-02-08] MEDS ORDERED: Diphtheria,Pertussis(Acell),Tetanus Vaccine 0.5 ML Syringe IM ONE (11:55)
[2024-02-08] MEDS ORDERED: Sennosides 8.6 MG Tab PO PRN (11:55)
[2024-02-08] MEDS ORDERED: Measles, Mumps & Rubella Vaccine 0.5 ML SDV SUBCUT ONE (11:55)
[2024-02-08] MEDS ORDERED: Ketorolac 30 MG/ML SDV IVPUSH SCH (12:00)
[2024-02-08] MEDS: Ibuprofen 800 MG Tab PO PRN (17:41)
[2024-02-08] MEDS: Methylergonovine 0.2 MG/1 ML Amp IM ONE (17:43)
[2024-02-08] MEDS: Benzocaine/Menthol 20%-0.5% Spray 78 GM Cannister TOP PRN (18:15)
[2024-02-08] MEDS: Witch Hazel Medicated Pads 40/Jar TOP PRN (18:15)
[2024-02-08] MEDS: Docusate Sodium 250 MG Cap PO SCH (21:00)
[2024-02-09 07:33] LABS: HEMATOCRIT 35.6 % (37.0-47.0); HEMOGLOBIN 12.1 g/dL (12.0-16.0)
[2024-02-09] MEDS ORDERED: Ibuprofen 800 MG Tab PO PRN (11:55)
[2024-02-09] MEDS ORDERED: Acetaminophen 500 MG Tab PO PRN (11:55)
== END 2024-02-10 10:39 | disposition home or self-care (01) | DRG 560 ==
LOC: MW.OBCHECK 05:36 → MW.OB 05:42 → MW.OBCHECK 05:56 → OBSVTOIN 11:44 → MW.OB 21:31
PROVIDERS: ADMIT Obstetrics & Gynecology; ATTEND Obstetrics & Gynecology
PROC: 10E0XZZ Delivery of Products of Conception, External Approach (ICD-10-PCS; principal; 2024-02-08)
PROC: 3E0R3BZ Introduction of Anesthetic Agent into Spinal Canal, Percutaneous Approach (ICD-10-PCS; 2024-02-08)
PROC: 00HU33Z Insertion of Infusion Device into Spinal Canal, Percutaneous Approach (ICD-10-PCS; 2024-02-08)
DX: O99.214 Obesity complicating childbirth (principal); E66.01 Morbid (severe) obesity due to excess calories; O42.02 Full-term premature rupture of membranes, onset of labor within 24 hours of rupture; Z3A.38 38 weeks gestation of pregnancy; Z37.0 Single live birth
CPT/HCPCS: 36415; 51702; 59025; 59409; 85014; 85018; 85027; 86592; 86850; 86900; 86901; A9270-GY; J0665; J2590; J2795; J7120